=== PATIENT | female | born 1935 | race Caucasian/White ===

== ENCOUNTER 2022-07-18 11:00 | Inpatient (IN) ==
[~2022-07-18 11:00] MED LIST: Buffered Lidocaine 1% SYRIN 1 ml INTRADERM ONE; Lactated Ringers 1000 ml BAG 1,000 ML IV SCH; Naloxone 0.4 mg VIAL 0.4 mg/ml 1 ml VIAL IV PRN; Ondansetron 4 mg VIAL 2 MG/ML 2 ml VIAL IV PRN; fentaNYL 100 mcg/2 ml 50 MCG/ML VIAL IV PRN; oxyCODONE/Acetamin 5/325 mg TAB PO PRN
[2022-07-18] MEDS ORDERED: ceFAZolin 2 GM in NS PREMIX 2 GM/100 ML BAG IVPB ONE (11:46)
[2022-07-18] MEDS ORDERED: Propofol 10 MG/ML 20 ML BTL ONE ×3 (11:49→16:28)
[2022-07-18] MEDS ORDERED: Lidocaine 2% PF 5 ML VIAL ONE (11:49)
[2022-07-18] MEDS ORDERED: Tranexamic Acid 1,000 MG in NS 0.9% 50 ML IV ONE (12:00)
[2022-07-18 12:15] LABS: Rapid COVID-19 Molecular Undetected (Undetected)
[2022-07-18] MEDS ORDERED: fentaNYL 100 mcg/2 ml 50 MCG/ML VIAL ONE (13:18)
[2022-07-18] MEDS ORDERED: Midazolam 2 mg/2 ml VIAL 1 mg/ml 2 ml VIAL (2 mg) ONE (13:18)
[2022-07-18] MEDS ORDERED: ROPIVACAINE 5 MG/ML 30 ML BTL (0.5%) ONE ×2 (13:45→14:06)
[2022-07-18] MEDS ORDERED: Phenylephrine 40 mcg/mL 10mL (400mcg) SYRINGE ONE (16:27)
[2022-07-18] MEDS ORDERED: Morphine 2 MG/ML SYRINGE IV PRN (16:48)
[2022-07-18] MEDS ORDERED: Lactulose 30 ml UDC PO PRN (16:48)
[2022-07-18] MEDS ORDERED: Ondansetron ODT 4 mg TAB 4 MG TAB PO PRN (16:48)
[2022-07-18] MEDS ORDERED: Magnesium Hydroxide LIQ 30 ML UDC PO PRN (16:48)
[2022-07-18] MEDS ORDERED: Ondansetron 4 mg VIAL 2 MG/ML 2 ml VIAL IV PRN (16:48)
[2022-07-18] MEDS: Lactated Ringers 1000 ml BAG 1,000 ML IV SCH (19:00)
[2022-07-18] MEDS: Magnesium Hydroxide LIQ 30 ML UDC PO SCH (20:13)
[2022-07-18] MEDS: ceFAZolin 1 GM ADVAN 1 GM in NS 0.9% 50 ML 50 ML IVPB SCH (22:44)
[2022-07-19] MEDS: Lactated Ringers 1000 ml BAG 1,000 ML IV SCH (05:00)
[2022-07-19] MEDS: ceFAZolin 1 GM ADVAN 1 GM in NS 0.9% 50 ML 50 ML IVPB SCH ×2 (06:16→14:59)
[2022-07-19 06:48] LABS: Hematocrit 35.9 % (35-45); Hemoglobin 12.3 g/dL (11.5-14.3); Mean Platelet Volume 8.2 fL (7.5-11.2); Platelet Count 201 10^3/uL (150-450)
[2022-07-19 07:09] LABS: Calcium 8.7 mg/dL (8.6-10.3); Creatinine, Serum 0.68 mg/dL (0.51-0.95); Potassium 3.9 mmol/L (3.5-5.0); eGFR CKD-EPI 85.3 (>60)
[2022-07-19] MEDS: Vitamin THERAPEUTIC TAB PO SCH (08:58)
[2022-07-19] MEDS: Magnesium Hydroxide LIQ 30 ML UDC PO SCH ×2 (08:58→21:19)
[2022-07-20 06:21] LABS: Hematocrit 34.1 % (35-45); Hemoglobin 11.9 g/dL (11.5-14.3); Mean Platelet Volume 8.1 fL (7.5-11.2); Platelet Count 183 10^3/uL (150-450)
[2022-07-20] MEDS: Vitamin THERAPEUTIC TAB PO SCH (09:03)
[2022-07-20] MEDS: dilTIAZem 30 MG TAB PO SCH ×3 (09:03→22:51)
[2022-07-20] MEDS: Magnesium Hydroxide LIQ 30 ML UDC PO SCH ×2 (09:05→21:41)
[2022-07-20] MEDS ORDERED: dilTIAZem 30 MG TAB PO SCH (12:00)
[2022-07-21 05:59] LABS: Platelet Count 201 10^3/uL (150-450)
[2022-07-21] MEDS: Vitamin THERAPEUTIC TAB PO SCH (09:19)
[2022-07-21] MEDS: Magnesium Hydroxide LIQ 30 ML UDC PO SCH ×2 (11:10→21:28)
[2022-07-22 06:29] LABS: Hematocrit 30.5 % (35-45); Hemoglobin 10.5 g/dL (11.5-14.3); Platelet Count 217 10^3/uL (150-450)
[2022-07-22] MEDS: Vitamin THERAPEUTIC TAB PO SCH (08:25)
[2022-07-22] MEDS: Magnesium Hydroxide LIQ 30 ML UDC PO SCH (08:25)
[2022-07-22 08:58] LABS: Rapid COVID-19 Molecular Undetected (Undetected)
[2022-07-22 10:30] VITALS: BP 120/54
== END 2022-07-22 12:50 | DRG 470 ==
LOC: AA 11:00 → SSU 18:19
PROVIDERS: ADMIT Orthopaedic Surgery Adult Reconstructive Orthopaedic Surgery; ATTEND Orthopaedic Surgery Adult Reconstructive Orthopaedic Surgery